=== PATIENT | female | born 1995 | race Caucasian/White ===

== ENCOUNTER 2023-07-29 16:07 | Inpatient (IN) | payer MEDICAID ==
[~2023-07-29] VITALS: Ht 155 cm; Wt 73.9 kg
[~2023-07-29 16:07] MED LIST: CARBOPROST 250 MCG/ML AMP IM PRN; HYDROmorphone 1 MG/ML AMP IVP PRN; LACTATED RINGERS 1,000 ML IV SCH; MEASLES, MUMPS, AND RUBELLA 1 VIAL SQVAC ONE; MEPERIDINE 25 MG/ML SYR IVP PRN; METHYLERGONOVINE 0.2 MG/ML AMP IM PRN; MORPHINE PRES FREE 10 MG/10 ML AMP IV ONE; MORPHINE SULFATE 4 MG/ML SYR IVP PRN; ONDANSETRON 4 MG/2 ML VIAL IVP PRN; OXYTOCIN 20 UNITS in LACTATED RINGERS 1,000 ML IV SCH; ROPIVACAINE 0.2%/NS PREMIX 100 ML EPI SCH; ROPIVACAINE 0.2%/NS PREMIX 200 ML EPI ONE; diphenhydrAMINE 50 MG/ML VIAL IVP PRN; fentaNYL citrate 0.05 MG/ML VIAL IM ONE; oxyCODONE/APAP 5/325 MG 1 TAB TAB PO PRN
[2023-07-29] MEDS ORDERED: PRETAB PO (16:24)
[2023-07-29 16:28] VITALS: BP 102/61; PULSE 88; RESP 20; TEMP 98.4
[2023-07-29] MEDS ORDERED: LACTATED RINGERS 500 ML IV SCH ×2 (17:20→17:50)
[2023-07-29] MEDS: LACTATED RINGERS 1,000 ML IV SCH ×2 (17:31→18:38)
[2023-07-29] MEDS ORDERED: CARBOPROST 250 MCG/ML AMP IM PRN (17:50)
[2023-07-29] MEDS ORDERED: LACTATED RINGERS 1,000 ML IV SCH (17:50)
[2023-07-29] MEDS ORDERED: METHYLERGONOVINE 0.2 MG/ML AMP IM PRN (17:50)
[2023-07-29 18:16] LABS: BASOPHILS % (AUTO) 0.6 % (0.0-2.0); EOSINOPHILS % (AUTO) 0.4 % (0.0-4.0); HEMATOCRIT 29.9 % (36-48); LYMPHOCYTES # (AUTO) 2.1 K/uL (2.5-16.5); LYMPHOCYTES % (AUTO) 33.3 % (20.5-51.1); MEAN CORPUSCULAR HEMOGLOBIN 29 pg (27-31); MEAN CORPUSCULAR HGB CONC 33 g/dL (33-37); MEAN CORPUSCULAR VOLUME 86.8 fL (80-94); MONOCYTES # (AUTO) 0.3 K/uL (0.8-1.0); MONOCYTES % (AUTO) 5.2 % (1.7-9.3); NEUTROPHILS # (AUTO) 3.9 K/uL (1.8-7.7); NEUTROPHILS % (AUTO) 60.5 % (42.2-75.2); PLATELET COUNT (AUTO) 166 K/uL (140-450); RED BLOOD CELL COUNT(AUTO) 3.45 MIL/uL (4.20-5.40); RED CELL DISTRIBUTION WIDTH 14.6 % (11.6-13.7); WHITE BLOOD COUNT (AUTO) 6.4 K/uL (4.8-10.8)
[2023-07-29 18:20] LABS: APPEARANCE,URINE CLEAR (CLEAR); BILIRUBIN,URINE NEGATIVE (NEGATIVE); BLOOD, URINE NEGATIVE (NEGATIVE); COLOR,URINE YELLOW (YELLOW); LEUKOCYTE ESTERASE ,URINE NEGATIVE (NEGATIVE); NITRITE, URINE NEGATIVE (NEGATIVE); PH,URINE 6.5 (5.0-9.0); PROTEIN,URINE NEGATIVE (NEGATIVE); UGLUCOSE NEGATIVE (NEGATIVE); UROBILINOGEN,URINE 0.2 EU/dL (0.2 - 1)
[2023-07-29] MEDS ORDERED: ROPIVACAINE 0.2%/NS PREMIX 200 ML EPI ONE (18:22)
[2023-07-29 18:27] LABS: INR 0.94 (0.8-1.2); PARTIAL THROMBOPLASTIN TIME 25.4 secs (22-35.6); PROTHROMBIN TIME 9.9 secs (10.8-13.4)
[2023-07-29 18:29] LABS: ALBUMIN 2.4 g/dL (3.4-5.0); ANION GAP 14.5 (8-16); CALCIUM 8.3 mg/dL (8.5-10.1); CARBON DIOXIDE 20.4 mmol/L (21-32); CREATININE 0.5 mg/dL (0.6-1.3); POTASSIUM 3.9 mmol/L (3.5-5.1); TOTAL BILIRUBIN 0.4 mg/dL (0.0-1.0); TOTAL PROTEIN, SERUM 6.3 g/dL (6.4-8.2)
[2023-07-29] MEDS ORDERED: ceFAZolin 2,000 MG VIAL ONE (18:45)
[2023-07-29] MEDS ORDERED: CITRIC ACID/SODIUM CITRATE 30 ML UDC ONE (19:22)
[2023-07-29] MEDS ORDERED: MORPHINE PRES FREE 10 MG/10 ML AMP IV ONE (19:24)
[2023-07-29] MEDS ORDERED: fentaNYL citrate 0.05 MG/ML VIAL ONE (19:24)
[2023-07-29] MEDS ORDERED: OXYTOCIN 20 UNITS/LR PREMIX 1,000 ML IV ONE (21:03)
[2023-07-29] MEDS ORDERED: MAG SULF 2000 MG/WATER PREMIX 100 ML IV ONE (21:25)
[2023-07-29] MEDS ORDERED: MAG SULF 20 GM/H2O PREMIX DRIP 500 ML IV PRN (21:25)
[2023-07-30] MEDS: KETOROLAC 30 MG/ML VIAL IVP SCH ×3 (00:02→11:55)
[2023-07-30 05:39] LABS: BASOPHILS % (AUTO) 0.1 % (0.0-2.0); HEMOGLOBIN 9.5 g/dL (12.0-16.0); LYMPHOCYTES # (AUTO) 1.3 K/uL (2.5-16.5); LYMPHOCYTES % (AUTO) 12.1 % (20.5-51.1); MEAN CORPUSCULAR HEMOGLOBIN 28 pg (27-31); MEAN CORPUSCULAR HGB CONC 33 g/dL (33-37); MEAN CORPUSCULAR VOLUME 86.8 fL (80-94); MONOCYTES # (AUTO) 0.3 K/uL (0.8-1.0); NEUTROPHILS # (AUTO) 9.5 K/uL (1.8-7.7); NEUTROPHILS % (AUTO) 84.8 % (42.2-75.2); PLATELET COUNT (AUTO) 163 K/uL (140-450); RED BLOOD CELL COUNT(AUTO) 3.35 MIL/uL (4.20-5.40); RED CELL DISTRIBUTION WIDTH 14.3 % (11.6-13.7); WHITE BLOOD COUNT (AUTO) 11.1 K/uL (4.8-10.8)
[2023-07-30] MEDS: IBUPROFEN 600 MG TAB PO SCH ×2 (06:30→17:30)
[2023-07-30] MEDS ORDERED: OXYTOCIN 20 UNITS/LR PREMIX 1,000 ML IV ONE ×2 (07:58→09:21)
[2023-07-30] MEDS: OXYTOCIN 20 UNITS in LACTATED RINGERS 1,000 ML IV SCH ×2 (08:03→09:43)
[2023-07-30] MEDS ORDERED: bisacodyL 10 MG SUPP RC SCH (09:00)
[2023-07-31] MEDS: IBUPROFEN 600 MG TAB PO SCH ×2 (00:45→07:18)
[2023-07-31] MEDS ORDERED: FLU VACCINE QS2023-24 0.5 ML SYR IMVAC ONE (04:30)
[2023-07-31] MEDS ORDERED: CAMERA MC ONE (05:12)
== END 2023-07-31 12:00 | disposition home or self-care (01) | DRG 540 ==
LOC: MLD 16:07 → OBSVTOIN 17:49 → MFCC 07-30 10:10
PROVIDERS: ADMIT Obstetrics & Gynecology; ATTEND Obstetrics & Gynecology
PROC: 10D00Z1 Extraction of Products of Conception, Low, Open Approach (ICD-10-PCS; principal; 2023-07-29 19:30)
DX: O34.211 Maternal care for low transverse scar from previous cesarean delivery (principal); D62 Acute posthemorrhagic anemia; Z20.822 Contact with and (suspected) exposure to COVID-19; Z37.0 Single live birth; Z3A.38 38 weeks gestation of pregnancy
CPT/HCPCS: 36415; 80053; 81003; 83735; 85025; 85610; 85730; 86592; 86886; 86900; 86901; J1200; J1885; J2210; J2270; J2590; J3010; J3475; J7120